=== PATIENT | male | born 1945 | race Hispanic/Latino ===

== ENCOUNTER → 2019-03-24 | Outpatient (CLI) | payer OTHER | END | disposition home or self-care (01) | LOC: OIH 15:37 | PROVIDERS: ATTEND Family Medicine | DX: R06.2 Wheezing (principal) | CPT/HCPCS: 71046 ==

== ENCOUNTER → 2019-08-22 | Outpatient (CLI) | payer OTHER | END | disposition home or self-care (01) | LOC: OIH 10:15 | PROVIDERS: ATTEND Family Medicine | DX: R06.02 Shortness of breath (principal) ==

== ENCOUNTER → 2019-12-02 | Outpatient (CLI) | payer OTHER | END | disposition home or self-care (01) | LOC: SHCH 08:43 | PROVIDERS: ATTEND Internal Medicine Cardiovascular Disease | DX: I25.5 Ischemic cardiomyopathy (principal) | CPT/HCPCS: 93306 ==

== ENCOUNTER → 2020-09-04 | Outpatient (CLI) | payer MEDICARE ==
[~2020-09-04] VITALS: Ht 180.3 cm; Wt 82.1 kg
[~2020-09-04] MED LIST: REGADENOSON 0.4 MG/5 ML PF SYG IVP SCH
== END | disposition home or self-care (01) ==
LOC: SHCH 08:01
PROVIDERS: ATTEND Internal Medicine Cardiovascular Disease
DX: I25.10 Atherosclerotic heart disease of native coronary artery without angina pectoris (principal); Z95.1 Presence of aortocoronary bypass graft
CPT/HCPCS: 78452; 93017; 96374; A9500 ×2; J2785

== ENCOUNTER → 2021-07-25 | Outpatient (CLI) | payer MEDICARE | END | disposition home or self-care (01) | LOC: LAB 09:42 | PROVIDERS: ATTEND Internal Medicine Cardiovascular Disease | DX: R06.02 Shortness of breath (principal); I34.0 Nonrheumatic mitral (valve) insufficiency | CPT/HCPCS: 36415; 83880 ==